=== PATIENT | male | born 1975 | race Caucasian/White ===

== ENCOUNTER 2018-09-19 12:22 | Emergency (ER) | payer OTHER ==
[~2018-09-19] VITALS: Wt 75.0 kg
[2018-09-19] MEDS ORDERED: ONDANSETRON (ODT) 4 MG TAB ODT STA (14:39)
[2018-09-19] MEDS ORDERED: morphine 4 MG/ML VIAL IM STA (14:39)
[2018-09-19] MEDS ORDERED: DIPHTH/TET/ACEL PERTUSS (ADULT) 0.5 ML VIAL IM* ONE (15:00)
[2018-09-19] MEDS ORDERED: CEFAZOLIN 1 GM INJ IM ONE (15:00)
[2018-09-19] MEDS ORDERED: HYDROmorphONE 0.5 MG/0.5 ML SYG IM STA (15:26)
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
[2018-09-19] MEDS ORDERED: SULF1TAB31 PO (16:14)
[2018-09-19] MEDS ORDERED: CEPH-443 PO (16:14)
[2018-09-19 16:31] VITALS: BP 132/78; PULSE 82; RESP 18
== END 2018-09-19 16:33 | disposition home or self-care (01) ==
LOC: E/R 12:22
DX: T22.212A Burn of second degree of left forearm, initial encounter (principal); Y27.8XXA Contact with other hot objects, undetermined intent, initial encounter; Y92.89 Other specified places as the place of occurrence of the external cause
CPT/HCPCS: 16000; 90471; 90715; 96372; J0690; J1170; J2270; Z7502; Z7610

== ENCOUNTER 2018-12-02 15:02 | Emergency (ER) | payer OTHER ==
[~2018-12-02] VITALS: Ht 165.1 cm; Wt 55.4 kg
[~2018-12-02 15:02] MED LIST: CEPH-443 PO; IBUP-1542 PO; PRED20TA PO; SULF1TAB31 PO; TRAM50TA2 PO
[2018-12-02 15:14] VITALS: Ht 165.1 cm; Wt 55.4 kg
--- NOTE | 2018-12-02 15:41 | EN ---
Date/Time of Note Date/Time of Note DATE: 12/02/18 TIME: 15:40 ER Progress Note 43-year-old male presents for left elbow pain and swelling. Symptoms have been for about 4 days. Abscess noted over the left elbow on physical examination. Likely will need an incision and drainage. Medical screening exam initiated and lab/imaging tests ordered. Patient will be seen by another provider. HAMMAD RADER DO Dec 02, 2018 15:41
[2018-12-02] MEDS ORDERED: KETOROLAC 30 MG INJ IM STA (16:58)
[2018-12-02] MEDS ORDERED: LIDOCAINE 2% (MDV) 20 ML INJ INJ ONE (17:00)
--- NOTE | 2018-12-02 19:00 | ERD ---
ER Documentation Chief Complaint Chief Complaint left elbow pain with redness x 5 days HPI 43-year-old male with no reported past medical history presents with complaint of left elbow pain, swelling, and redness over the past 5 days. Just noticed redness and swelling of the area upon waking up 5 days ago. He otherwise denies fevers, chills, intravenous drug use, or any other concerning symptoms. Reports all vaccinations up-to-date and no allergies to any medications. ROS All systems reviewed and are negative except as per history of present illness. Medications Home Meds Active Scripts Cephalexin* (Keflex*) 500 Mg Capsule, 500 MG PO QID for 7 Days, CAP Prov:JEUDINE,GETHO PA-C 12/02/18 Sulfamethoxazole/Trimethoprim* (Bactrim Ds* Tablet) 1 Each Tablet, 1 TAB PO BID, #7 TAB Prov:JEUDINE,GETHO PA-C 12/02/18 Ibuprofen* (Motrin*) 600 Mg Tab, 600 MG PO Q6, #30 TAB Prov:JEUDINE,GETHO PA-C 12/02/18 Tramadol HCl (Tramadol HCl) 50 Mg Tablet, 50 MG PO Q4 PRN for PAIN, #20 TAB Prov:JEUDINE,GETHO PA-C 12/02/18 Cephalexin* (Keflex*) 500 Mg Capsule, 500 MG PO QID for 5 Days, CAP Prov:MICHELLE BOYLE S. 09/19/18 Sulfamethoxazole/Trimethoprim* (Bactrim Ds* Tablet) 1 Each Tablet, 1 TAB PO BID, #14 TAB Prov:MICHELLE BOYLE S. 09/19/18 Allergies Allergies: Coded Allergies: No Known Allergy (Unverified , 09/19/18) PMhx/Soc Medical and Surgical Hx: pt denies Medical Hx, pt denies Surgical Hx Hx Alcohol Use: Yes (occasional) Hx Substance Use: No Hx Tobacco Use: Yes Smoking Status: Current some day smoker FmHx Family History: No diabetes, No coronary disease, No other Physical Exam Vitals Vital Signs Date Temp Pulse Resp B/P (MAP) Pulse Ox O2 O2 Flow FiO2 Time Delivery Rate 12/02/18 98.9 110 18 115/84 99 15:14 (94) Physical Exam Const: No acute distress Head: Atraumatic Eyes: Normal Conjunctiva ENT: Normal External Ears, Nose and Mouth. Neck: Full range of motion. No meningismus. Resp: Clear to auscultation bilaterally Cardio: Regular rate and rhythm, no murmurs Abd: Soft, non tender, non distended. Normal bowel sounds Skin: No petechiae or rashes Back: No midline or flank tenderness Ext: Left able elbow with area of redness, swelling, induration to the posterior elbow/forearm, 5 5 strength throughout, SI LT throughout, patient wiggles all fingers Neur: Awake and alert Psych: Normal Mood and Affect Results 24 hrs Current Medications Medications Dose Sig/Geronimo Start Time Status Last (Trade) Ordered Route PRN Stop Time Admin Dose Reason Admin Lidocaine 20 ml ONCE ONCE 12/02/18 DC (Xylocaine INJ 17:00 2% (Mdv) 20 12/02/18 17:01 ml) Ketorolac 30 mg ONCE STAT 12/02/18 DC 12/02/18 Tromethamine IM 16:58 17:06 (Toradol) 12/02/18 17:00 Procedures/MDM 43-year-old male presents with left elbow abscess. I have low suspicion any acute process warranting further emergent care other than below. Patient to be discharged with antibiotic course and appropriate pain medications. Intact post procedure. Abscess Incision and Drainage with irrigation by me: Location: Left elbow/forearm distal Anesthesia: Local 1% Lidocaine Technique: Irrigated. Disrupted loculations w/ instrumentation Packing: None Complications: Neurovascularly intact post procedure X-ray of left elbow without acute finding, notable for soft tissue swelling 48 hour wound check. Scar minimization instructions given. DISPOSITION PLAN: We discussed follow up with the patient's primary care doctor within 24 to 48 hours. Patient counseled regarding my diagnostic impression and care plan. Prior to discharge all questions answered. Pt agrees with treatment plan and understands strict return precautions. Precautionary instructions provided including instructions to return to the ER if not improving or for any worsening or changing symptoms or concerns. Disclaimer: Inadvertent spelling and grammatical errors are likely due to EHR/dictation software use and do not reflect on the overall quality of patient care. Also, please note that the electronic time recorded on this note does not necessarily reflect the actual time of the patient encounter. Departure Diagnosis: Primary Impression: Elbow pain Condition: Stable Patient Instructions: Abscess, Incision And Drainage Referrals: [facility] YOU HAVE RECEIVED A MEDICAL SCREENING EXAM AND THE RESULTS INDICATE THAT YOU DO NOT HAVE A CONDITION THAT REQUIRES URGENT TREATMENT IN THE EMERGENCY DEPARTMENT. FURTHER EVALUATION AND TREATMENT OF YOUR CONDITION CAN WAIT UNTIL YOU ARE SEEN IN YOUR DOCTORS OFFICE WITHIN THE NEXT 1-2 DAYS. IT IS YOUR RESPONSIBILITY TO MAKE AN APPOINTMENT FOR FOLOW-UP CARE. IF YOU HAVE A PRIMARY DOCTOR --you should call your primary doctor and schedule an appointment IF YOU DO NOT HAVE A PRIMARY DOCTOR YOU CAN CALL OUR PHYSICIAN REFERRAL HOTLINE AT IF YOU CAN NOT AFFORD TO SEE A PHYSICIAN YOU CAN CHOSE FROM THE FOLLOWING [facility] [address] [facility]. [facility] [address] [facility] [address] [facility] [address] [facility]. [facility] [address] [facility]. [facility] [address] Additional Instructions: Call your primary care doctor TOMORROW for an appointment during the next 2-3 days.See the doctor sooner or return here if your condition worsens before your appointment time. JULIANN KAT PA-C Dec 02, 2018 19:00
[2018-12-02 19:07] VITALS: BP 122/78; PULSE 90; RESP 16
== END 2018-12-02 19:08 | disposition home or self-care (01) ==
LOC: FTE 15:02
DX: L02.414 Cutaneous abscess of left upper limb (principal); F17.210 Nicotine dependence, cigarettes, uncomplicated
CPT/HCPCS: 10060; 73080; 96372; J1885; Z7502; Z7610

== ENCOUNTER 2018-12-03 08:46 | Emergency (ER) | payer OTHER ==
[~2018-12-03] VITALS: Ht 165.1 cm; Wt 53.6 kg
[2018-12-03 08:57] VITALS: RESP 20; Ht 165.1 cm; Wt 53.6 kg
[2018-12-03] MEDS ORDERED: ACETAMINOPHEN 325 MG TAB PO ONE (10:00)
[2018-12-03] MEDS ORDERED: LIDOCAINE 2% (MDV) 20 ML INJ INJ ONE (10:00)
[2018-12-03] MEDS ORDERED: SOD CHLORIDE 0.9% 1,000 ML IV ONE (10:00)
[2018-12-03] MEDS ORDERED: PIPER-TAZO 3.375 GM IV (PMX) 100 ML IVPB ONE (10:00)
[2018-12-03] MEDS ORDERED: METHYLPREDNISOLONE 125 MG INJ IV ONE (11:30)
[2018-12-03 12:43] VITALS: BP 118/69; PULSE 86
--- NOTE | 2018-12-03 19:33 | ERD ---
ER Documentation Chief Complaint Chief Complaint pt. here for recheck on his left arm/hand, more swollen today. here yesterd HPI 43yo M presents to ED for evaluation of pain and swelling to the left elbow x 6 days. Pt presented to ED yesterday where he had an abscess of the left elbow incised and drained, no packing was placed, and pt given Rx Bactrim and Keflex which he states compliance with. At this time he states the swelling as gotten worse, now extending into his hand. Pt has a hx of previous meth use and IVDA, but states to have not used for 6 weeks. He denies fevers, chills, sweats, or loss of motor function of the affected extremity. Denies chronic medical conditions. ROS All systems reviewed and are negative except as per history of present illness. Medications Home Meds Active Scripts Prednisone (Prednisone) 20 Mg Tab, 40 MG PO DAILY for 5 Days, #10 TAB Prov:MARICARMEN THOA PA-C 12/03/18 Cephalexin* (Keflex*) 500 Mg Capsule, 500 MG PO QID for 7 Days, CAP Prov:JULIANN KAT PA-C 12/02/18 Sulfamethoxazole/Trimethoprim* (Bactrim Ds* Tablet) 1 Each Tablet, 1 TAB PO BID, #7 TAB Prov:JULIANN KAT-C 12/02/18 Ibuprofen* (Motrin*) 600 Mg Tab, 600 MG PO Q6, #30 TAB Prov:JULIANN KAT PA-C 12/02/18 Tramadol HCl (Tramadol HCl) 50 Mg Tablet, 50 MG PO Q4 PRN for PAIN, #20 TAB Prov:JULIANN KAT PA-C 12/02/18 Cephalexin* (Keflex*) 500 Mg Capsule, 500 MG PO QID for 5 Days, CAP Prov:MICHELLE BOYLE S. 09/19/18 Sulfamethoxazole/Trimethoprim* (Bactrim Ds* Tablet) 1 Each Tablet, 1 TAB PO BID, #14 TAB Prov:MICHELLE BOYLE S. 09/19/18 Allergies Allergies: Coded Allergies: No Known Allergy (Unverified , 09/19/18) PMhx/Soc History of Surgery: No Anesthesia Reaction: No Hx Neurological Disorder: No Hx Respiratory Disorders: No Hx Cardiac Disorders: No Hx Psychiatric Problems: No Hx Miscellaneous Medical Probl: No Hx Alcohol Use: Yes (occasional) Hx Substance Use: Yes (Meth) Hx Tobacco Use: Yes Smoking Status: Current every day smoker FmHx Family History: No diabetes, No coronary disease, No other Physical Exam Vitals Vital Signs Date Temp Pulse Resp B/P (MAP) Pulse Ox O2 O2 Flow FiO2 Time Delivery Rate 12/03/18 86 118/69 12:43 (85) 12/03/18 99.6 105 20 136/68 100 08:57 (90) Physical Exam Const: No acute distress. Unkempt and disheveled. Head: Atraumatic Eyes: Normal Conjunctiva ENT: Normal External Ears, Nose and Mouth. Neck: Full range of motion. No meningismus. Resp: Clear to auscultation bilaterally Cardio: Tachycardic, but with regular rhythm, no murmurs Back: No midline or flank tenderness Ext: Visible edema of the Left UE extending from the elbow to the hand and digits with erythema to the mid forearm and bicep. No pitting. Actively draining abscess to the left elbow, warm and tender to touch. Radial pulse 2+, pt able to wiggle fingers, sensation intact to radial, medial and ulnar distribution. Neur: Awake and alert Psych: Normal Mood and withdrawn affect Result Diagram: 12/03/18 0947 Results 24 hrs Laboratory Tests Test 12/03/18 09:47 12/03/18 11:44 White Blood Count 10.2 10^3/ul Red Blood Count 5.30 10^6/ul Hemoglobin 14.2 g/dl Hematocrit 44.3 % Mean Corpuscular Volume 83.6 fl Mean Corpuscular Hemoglobin 26.8 pg Mean Corpuscular Hemoglobin Concent 32.1 g/dl Red Cell Distribution Width 12.4 % Platelet Count 262 10^3/UL Mean Platelet Volume 9.4 fl Immature Granulocytes % 0.400 % Neutrophils % 74.1 % Lymphocytes % 15.8 % Monocytes % 9.1 % Eosinophils % 0.4 % Basophils % 0.2 % Nucleated Red Blood Cells % 0.0 /100WBC Immature Granulocytes # 0.040 10^3/ul Neutrophils # 7.6 10^3/ul Lymphocytes # 1.6 10^3/ul Monocytes # 0.9 10^3/ul Eosinophils # 0.0 10^3/ul Basophils # 0.0 10^3/ul Nucleated Red Blood Cells # 0.0 10^3/ul POC Venous Lactate 2.5 mmol/L Current Medications Medications Dose Sig/Geronimo Start Time Status Last (Trade) Ordered Route PRN Stop Time Admin Dose Reason Admin Piperacillin 100 ml @ ONCE ONCE 12/03/18 DC 12/03/18 Sod/ 200 mls/hr IVPB 10:00 09:49 Tazobactam 12/03/18 10:29 Sod Sodium 1,000 ml @ Q1H ONCE 12/03/18 DC 12/03/18 Chloride 1,000 mls/hr IV 10:00 09:48 12/03/18 10:59 650 mg ONCE ONCE 12/03/18 DC 12/03/18 Acetaminophen PO 10:00 09:49 (Tylenol 12/03/18 10:01 Tab) Lidocaine 20 ml ONCE ONCE 12/03/18 DC (Xylocaine INJ 10:00 2% (Mdv) 20 12/03/18 10:01 ml) 125 mg ONCE ONCE 12/03/18 DC 12/03/18 Methylprednis IV 11:30 11:32 olone Sodium 12/03/18 11:31 Succinate (Solu-Medrol) Procedures/MDM PROCEDURE: US left upper extremity veins. FINDINGS: The left internal jugular, subclavian, axillary, brachial, basilic, radial, ulnar, and cephalic veins are patent. There is normal flow with augmentation and compressibility throughout. There is no thrombus or occlusion. There is soft tissue swelling and subcutaneous edema. IMPRESSION: 1. No evidence of thrombus or occlusion. 2. There is soft tissue swelling and subcutaneous edema. Abscess Incision and Drainage with irrigation by me: Location: Left elbow Anesthesia: Local 2% Lidocaine Technique: Irrigated. Disrupted loculations w/ instrumentation Packing: Iodoform Complications: Neurovascularly intact post procedure 48 hour wound check. Scar minimization instructions given. MDM: This is a 43yo M who presents for evaluation of abscess to the left elbow which was drained in the ED yesterday. On physical examination abscess is still actively draining and fluctuant. Erythema surrounding abscess consistent with cellulitis. Labs performed and showed no white count. Area was disinfected with betadine, anesthetized with Lidocaine 2% to express remaining purulent discharge. Moderate amount of purulent discharge was expressed, wound culture obtained, and packing placed. Area covered with sterile dressing. Patient tolerated the procedure well. IV abx, steroid, and fluids administered. Venous doppler performed to r/o blood clot given increased swelling to the arm and hx of IVDA. Negative for blood clot. Pt advised to continue with bactrim and keflex as previously prescribed, and also started on short course steroids for swelling. Wound care instructions discussed as well as follow up instructions, pt is to return to the ED in 48hrs for removal of packing and re-evaluation. At this time I have low suspicion for NV compromise and SEPSIS. Patient is stable for discharge home and outpatient management at this time, advised to follow-up with PCP in 1-2 days. Pt also assessed by Dr. Degroot, who agreed pt stable for discharge home with close f/u and strict ED precautions. Departure Diagnosis: Primary Impression: Abscess Condition: Stable Patient Instructions: Abscess, Incision And Drainage Additional Instructions: You had an abscess incised and drained today with packing placed. Please return to the ED in 48hrs for removal of the packing. If you develop fevers, chills, sweats please return sooner. You were also prescribed a steroid. This steroid is intended to help with swelling associated with your infection. MARICARMEN THAO PA-C Dec 03, 2018 19:33
== END 2018-12-03 12:46 | disposition home or self-care (01) ==
LOC: FTE 08:46
DX: L02.414 Cutaneous abscess of left upper limb (principal); F17.210 Nicotine dependence, cigarettes, uncomplicated
CPT/HCPCS: 10060; 83605; 85025; 87070; 93971; 96365; 96366; 96375; J2543; J2930; J7030; Z7502; Z7610